=== PATIENT | male | born 1965 | race Two or more races ===

== ENCOUNTER 2020-08-30 07:45 | Outpatient (CLI) | payer OTHER | END 2020-08-30 07:55 | disposition home or self-care (01) | LOC: RAD 07:45 | PROVIDERS: ATTEND Specialist | DX: M17.12 Unilateral primary osteoarthritis, left knee (principal) ==

== ENCOUNTER 2024-12-06 07:07 | Outpatient (CLI) | payer OTHER | END 2024-12-06 07:08 | disposition home or self-care (01) | LOC: NUCLEAR 07:07 | DX: I25.110 Atherosclerotic heart disease of native coronary artery with unstable angina pectoris (principal) ==